=== PATIENT | female | born 1955 | race Caucasian/White ===

== ENCOUNTER 2017-01-18 14:38 | Inpatient (IN) | payer MEDICARE, OTHER ==
[2017-01-18] MEDS ORDERED: Nitrostat 0.4 MG (ED) SL ONE ×2 (15:16→15:22)
[2017-01-18] MEDS ORDERED: BABY ASPIRIN 81 MG CHEW PO ONE (15:16)
[2017-01-18] MEDS ORDERED: Levofloxacin 500MG/100ML D5W 500 MG/100 ML BAG IV STA (15:18)
[2017-01-18] MEDS ORDERED: Zofran 4 MG/2 ML VIAL IV ONE (15:19)
[2017-01-18] MEDS ORDERED: PROVENTIL Solution 2.5 MG/0.5 ML IH ONE ×2 (15:20→15:23)
[2017-01-18] MEDS ORDERED: Levofloxacin 500MG/100ML D5W 500 MG/100 ML BAG IV ONE (15:23)
[2017-01-18] MEDS ORDERED: Sodium Chloride 3 ML UD NEBULES IH ONE (15:24)
[2017-01-18] MEDS ORDERED: SUBLIMAZE 100 MCG/2 ML IV ONE (15:24)
[2017-01-18] MEDS: Sodium Chloride 0.9% 1000 ML 1,000 ML IV SCH (15:27)
--- NOTE | 2017-01-18 15:27 | ERPHSYRPT ---
- History of Present Illness Time Seen by Provider: 01/18/17 15:07 Exam Limitations: clinical condition Patient Subjective Stated Complaint: increased coughing and chest pressure for two weeks. states chest is sore to touch and pain increases with cough. Triage Nursing Assessment: to room per w/c, skin w/d, color pale, resp slightly labored. uses home oxygen. hx copd. states chest heaviness for two weeks. increased cough with green phlegm. Physician History: PATIENT WITH A HISTORY OF COPD, COMPLAINS OF ANTERIOR SHARP PAINS IN CHEST FOR 2 WEEKS ASSOCIATED WITH DIFFICULTY BREATHING AND A PRODUCTIVE COUGH GREEN SPUTUM. DENIES ASSOCIATED FEVER OR CHILLS. Timing/Duration: week(s) Activities at Onset: none Quality: sharpness Location: substernal Chest Pain Radiation: no radiation Severity of Pain-Max: severe Severity of Pain-Current: severe Modifying Factors: Improves With: breathing, coughing, exertion, change in position Associated Symptoms: cough, hurts to breathe Prior Chest Pain/Cardiac Workup: no prior cardiac workup Nitro Today/Relief: 0.4 mg x 2, provided by ED Aspirin Treatment Today: no aspirin today (ALLERGY TO ASPIRIN) Allergies/Adverse Reactions: aspirin Allergy (Verified 01/18/17 15:00) Home Medications: Albuterol Sulfate [Ventolin Hfa] 18 gm IH Q4HPRN PRN 11/25/15 [History] Albuterol/Ipratropium 3ml Neb* [DUONEB 0.5-3 MG/3 ml Neb] 1 unit NEB Q6H 11/24 [History] Budesonide/Formoterol Fumarate [Symbicort 160-4.5 Mcg Inhaler] 10.2 gm IH BID [History] Oxycodone HCl/Acetaminophen [Percocet 7.5-325 mg Tablet] 1 ea PO Q8HPRN PRN [History] Alprazolam [Xanax ER 0.5MG] 0.5 mg PO BID 01/18/17 [History] Hx Tetanus, Diphtheria Vaccination/Date Given: No Hx Influenza Vaccination/Date Given: No Hx Pneumococcal Vaccination/Date Given: Yes - Review of Systems Constitutional: No Fever, No Chills Eyes: No Symptoms Ears, Nose, & Throat: No Symptoms Respiratory: Cough, Dyspnea Cardiac: Chest Pain, No Edema, No Syncope Abdominal/Gastrointestinal: No Symptoms, No Abdominal Pain, No Nausea, No Vomiting, No Diarrhea Genitourinary Symptoms: No Symptoms, No Dysuria Musculoskeletal: No Symptoms, No Back Pain, No Neck Pain Skin: No Symptoms, No Rash Neurological: No Symptoms, No Dizziness, No Focal Weakness, No Sensory Changes Psychological: No Symptoms Endocrine: No Symptoms All Other Systems: Reviewed and Negative - Past Medical History Pertinent Past Medical History: Yes Neurological History: Migraines ENT History: No Pertinent History Respiratory History: COPD Endocrine Medical History: No Pertinent History Musculoskeletal History: Degenerative Disk Disease, Osteoporosis, Other GI Medical History: No Pertinent History History: No Pertinent History Psycho-Social History: No Pertinent History Female Reproductive Disorders: No Pertinent History - Past Surgical History Past Surgical History: Yes Neuro Surgical History: No Pertinent History Cardiac: No Pertinent History Respiratory: No Pertinent History Gastrointestinal: Cholecystectomy Genitourinary: No Pertinent History Musculoskeletal: Orthopedic Surgery Female Surgical History: No Pertinent History Other Surgical History: KNEE SURG - Social History Smoking Status: Current every day smoker How long have you smoked: 48 Exposure to second hand smoke: Yes Drug Use: none Patient Lives Alone: No Significant Family History: heart disease, cancer - Nursing Vital Signs Nursing Vital Signs: Initial Vital Signs Temperature 97.3 F Temperature Source Oral Pulse Rate [] 86 Pulse Rate 96 Respiratory Rate 20 Blood Pressure [] 119/72 Pain Intensity 7 - Physical Exam General Appearance: moderate distress Eye Exam: PERRL/EOMI, eyes nml inspection Ears, Nose, Throat Exam: normal ENT inspection, moist mucous membranes Neck Exam: normal inspection, non-tender, supple, full range of motion Respiratory Exam: lungs clear, diminished breath sounds (POOR AIR EXCHANGE), No respiratory distress Cardiovascular Exam: regular rate/rhythm, normal heart sounds Gastrointestinal/Abdomen Exam: soft, normal bowel sounds, No tenderness, No mass Back Exam: normal inspection, No CVA tenderness, No vertebral tenderness Extremity Exam: normal inspection, normal range of motion Neurologic Exam: alert, oriented x 3, cooperative, normal mood/affect, sensation nml, No motor deficits Skin Exam: normal color, warm, dry SpO2: 98 Oxygen Delivery: Nasal Cannula - Course EKG Interpreted by Me: RATE, Sinus Rhythm, Other (INDETERMINATE AXIS) - Radiology Exams Chest X-ray Interpretation: Discussed w/ radiologist, Negative Ordered Tests: Active Orders 24 hr Category Date Time Status Up With Assistance ROUTINE Activity 01/18/17 17:46 Ordered Admission/Status Order ROUTINE Care 01/18/17 17:46 Ordered Supervisor Hanging And Trimming STAT Care 01/18/17 15:25 Active Code Status Order ROUTINE Care 01/18/17 17:46 Ordered IV Care Q6H Care 01/18/17 17:46 Ordered IV Insertion STAT Care 01/18/17 15:19 Active Oxygen-ED Only NASAL CANNULA 2 lpm Care 01/18/17 15:16 Active Saroj Diaz, Apply ROUTINE Care 01/18/17 17:46 Ordered Vital Signs Q4H Care 01/18/17 17:46 Ordered Weight,Daily 0600 Care 01/18/17 17:46 Ordered Regular Diet Diet 01/18/17 Breakfast Ordered CHEST 1 VIEW (PORTABLE) Stat Exams 01/18/17 15:17 Completed BLOOD CULTURE Stat Lab 01/18/17 15:30 Received CBC W DIFF Stat Lab 01/18/17 15:16 Completed CMP Stat Lab 01/18/17 15:16 Completed D-DIMER QUANTITATION Stat Lab 01/18/17 15:16 Completed MAGNESIUM Stat Lab 01/18/17 15:16 Completed TROPONIN Q3H Lab 01/18/17 15:30 Completed TROPONIN Q3H Lab 01/18/17 18:30 Ordered TROPONIN Q3H Lab 01/18/17 21:30 Ordered TROPONIN Q3H Lab 01/19/17 00:30 Ordered TROPONIN Q3H Lab 01/19/17 03:30 Ordered Oxygen NASAL CANNULA 2 lpm RT 01/18/17 17:46 Ordered Pulse Oximetry CONTINUOUS RT 01/18/17 17:48 Ordered Respiratory Nebulizer STAT RT 01/18/17 15:21 Completed Respiratory Nebulizer STAT RT 01/18/17 17:38 Active Transfer Order Routine Transfer 01/18/17 17:46 Ordered Medication Summary Generic Name Dose Route Start Last Admin Trade Name Freq PRN Reason Stop Dose Admin Albuterol/Ipratropium 3 ml 01/18/17 19:00 Duoneb 0.5-3 Mg/3 Ml Neb IH 02/17/17 18:59 Q4HRT MARIBELL Alprazolam 0.5 mg 01/18/17 22:00 Xanax 0.5 Mg PO 02/17/17 21:59 BID MARIBELL Sodium Chloride 1,000 mls @ 50 mls/hr 01/18/17 15:30 01/18/17 15:27 Sodium Chloride 0.9% 1000 Ml IV 02/17/17 15:29 100 mls/hr .Q20H MARIBELL Administration Levalbuterol HCl 1.25 mg 01/18/17 17:49 Xopenex 1.25 Mg/0.5 Ml Ud Nebule IH 02/17/17 17:48 Q2HPRN PRN DIFFICULTY BREATHING Methylprednisolone Sodium Succinate 80 mg 01/18/17 18:00 Solu-Medrol 125 Mg IV 02/17/17 17:59 Q6HT MARIBELL Oxycodone/Acetaminophen 1 tab 01/18/17 17:50 Percocet Tablet 5/325mg PO 01/23/17 17:49 Q4H PRN PRN PAIN Discontinued Medications Generic Name Dose Route Start Last Admin Trade Name Freq PRN Reason Stop Dose Admin Albuterol Sulfate 10 mg 01/18/17 15:20 01/18/17 15:30 Proventil Solution 2.5 Mg/0.5 Ml IH 01/18/17 15:21 10 mg STAT ONE Administration Albuterol Sulfate Confirm 01/18/17 15:23 Proventil Solution 2.5 Mg/0.5 Ml Administered 01/18/17 15:24 Dose 10 mg IH .STK-MED ONE Albuterol/Ipratropium 3 ml 01/18/17 17:38 01/18/17 17:43 Duoneb 0.5-3 Mg/3 Ml Neb IH 01/18/17 17:39 3 ml STAT ONE Administration Albuterol/Ipratropium Confirm 01/18/17 17:43 Duoneb 0.5-3 Mg/3 Ml Neb Administered 01/18/17 17:44 Dose 3 ml IH .STK-MED ONE Aspirin 324 mg 01/18/17 15:16 01/18/17 15:47 Baby Aspirin 81 Mg Chew PO 01/18/17 15:17 Not Given STAT ONE Fentanyl Citrate 50 mcg 01/18/17 15:24 01/18/17 15:41 Sublimaze 100 Mcg/2 Ml IV 01/18/17 15:25 50 mcg STAT ONE Administration Fentanyl Citrate Confirm 01/18/17 15:39 Sublimaze 100 Mcg/2 Ml Administered 01/18/17 15:40 Dose 100 mcg .ROUTE .STK-MED ONE Levofloxacin/Dextrose 500 mg in 100 mls @ 100 mls/hr 01/18/17 15:18 01/18/17 15:27 Levofloxacin 500mg/100ml D5w IV 01/18/17 16:17 100 mls/hr STAT STA Administration Levofloxacin/Dextrose Confirm 01/18/17 15:23 Levofloxacin 500mg/100ml D5w Administered 01/18/17 15:24 Dose 500 mg in 100 mls @ ud IV .STK-MED ONE Methylprednisolone Sodium Succinate 125 mg 01/18/17 17:38 Solu-Medrol 125 Mg IV 01/18/17 17:39 STAT ONE Nitroglycerin 0.4 mg 01/18/17 15:16 01/18/17 15:27 Nitrostat 0.4 Mg (Ed) SL 01/18/17 15:17 0.4 mg STAT ONE Administration Nitroglycerin Confirm 01/18/17 15:22 Nitrostat 0.4 Mg (Ed) Administered 01/18/17 15:23 Dose 0.4 mg SL .STK-MED ONE Nitroglycerin 1 gm 01/18/17 17:45 Nitro-Bid 2% Ud Packets TOP 01/18/17 17:46 STAT ONE Ondansetron HCl 4 mg 01/18/17 15:19 01/18/17 15:41 Zofran 4 Mg/2 Ml Vial IV 01/18/17 15:20 4 mg STAT ONE Administration Ondansetron HCl Confirm 01/18/17 15:38 Zofran 4 Mg/2 Ml Vial Administered 01/18/17 15:39 Dose 4 mg .ROUTE .STK-MED ONE Sodium Chloride Confirm 01/18/17 15:24 Sodium Chloride 3 Ml Ud Nebules Administered 01/18/17 15:25 Dose 9 ml IH .STK-MED ONE Lab/Rad Data: Laboratory Result Diagrams 01/18/17 15:16 01/18/17 15:16 Laboratory Results 01/18/17 01/18/17 01/18/17 Range/Units 15:30 15:16 15:16 WBC (4.0-10.5) K/mm3 RBC (4.1-5.4) M/mm3 Hgb (12.0-16.0) gm/dl Hct (35-47) % MCV (78-100) fl MCH (26-32) pg MCHC (32-36) g/dl RDW (11.5-14.0) % Plt Count (150-450) K/mm3 MPV (6-9.5) fl Gran % (36.0-66.0) % Lymphocytes % (24.0-44.0) % Monocytes % (0.0-12.0) % Eosinophils % (0.00-5.0) % Basophils % (0.0-0.4) % Basophils # (0-0.4) D-Dimer 240 (0-500) ng/mL Sodium 136 (136-145) mEq/L Potassium 3.6 (3.5-5.1) mEq/L Chloride 92 L (98-107) mEq/L Carbon Dioxide 40.8 H (21-32) mEq/L Anion Gap 7.1 (5-15) MEQ/L BUN 9 (9-20) mg/dL Creatinine 0.51 L (0.55-1.30) mg/dl Estimated GFR > 60 ML/MIN Glucose 112 H (70-110) MG/DL Calcium 9.5 (8.5-10.1) mg/dL Magnesium 1.9 (1.8-2.4) mg/dL Total Bilirubin 0.20 (0.2-1.0) mg/dL AST 21 (15-37) U/L ALT 19 (12-78) U/L Alkaline Phosphatase 44 L (46-116) U/L Troponin I < 0.017 (0.000-0.056) ng/ml Serum Total Protein 8.0 (6.4-8.2) gm/dL Albumin 4.2 (3.4-5.0) g/dL 01/18/17 Range/Units 15:16 WBC 4.9 (4.0-10.5) K/mm3 RBC 4.16 (4.1-5.4) M/mm3 Hgb 12.7 (12.0-16.0) gm/dl Hct 41.3 (35-47) % MCV 99.3 (78-100) fl MCH 30.5 (26-32) pg MCHC 30.8 L (32-36) g/dl RDW 12.2 (11.5-14.0) % Plt Count 185 (150-450) K/mm3 MPV 8.8 (6-9.5) fl Gran % 43.3 (36.0-66.0) % Lymphocytes % 47.4 H (24.0-44.0) % Monocytes % 6.4 (0.0-12.0) % Eosinophils % 2.7 (0.00-5.0) % Basophils % 0.2 (0.0-0.4) % Basophils # 0.01 (0-0.4) D-Dimer (0-500) ng/mL Sodium (136-145) mEq/L Potassium (3.5-5.1) mEq/L Chloride (98-107) mEq/L Carbon Dioxide (21-32) mEq/L Anion Gap (5-15) MEQ/L BUN (9-20) mg/dL Creatinine (0.55-1.30) mg/dl Estimated GFR ML/MIN Glucose (70-110) MG/DL Calcium (8.5-10.1) mg/dL Magnesium (1.8-2.4) mg/dL Total Bilirubin (0.2-1.0) mg/dL AST (15-37) U/L ALT (12-78) U/L Alkaline Phosphatase (46-116) U/L Troponin I (0.000-0.056) ng/ml Serum Total Protein (6.4-8.2) gm/dL Albumin (3.4-5.0) g/dL - Progress Progress Note: 01/18/17 17:40 PATIENT GIVEN A CONTINUOUS NEBULIZER ALBUTEROL 0.5% 10MG OVER 1 HOUR. IV NORMAL SALINE 100ML/HR, SOLUMEDROL 125MG IV, AND AFTER 2 SETS OF BLOOD CULTURES LEVAQUIN 500MG IVPB. 01/18/17 17:45 UNABLE TO GIVE ASPIRIN DUE TO ALLERGY, Blood Culture(s) Obtained: Yes Antibiotics given: Yes (LEVAQUIN 500MG IVPB) Discussed with : Faith (DISCUSSED WITH DR VELAZQUEZ AT 1725 FOR ADMISSION) - Departure Time of Disposition: 18:00 Departure Disposition: Observation Clinical Impression: ACUTE CHEST PAIN, EXACERBATION COPD Condition: Stable Critical Care Time: No Referrals: DOROTA BOOGIE [Primary Care Provider] -
[2017-01-18 15:38] LABS: BASOPHIL % 0.2 % (0.0-0.4); Eosinophil % 2.7 % (0.00-5.0); Granulocytes % 43.3 % (36.0-66.0); Lymphocytes % 47.4 % (24.0-44.0); Mean Cell Volume 99.3 fl (78-100); Mean Corpuscular Hemoglobin 30.5 pg (26-32); Mean Platelet Volume 8.8 fl (6-9.5); Monocytes % 6.4 % (0.0-12.0); Platelet Count 185 K/mm3 (150-450); Red Blood Count 4.16 M/mm3 (4.1-5.4); Red Cell Distribution Width 12.2 % (11.5-14.0); White Blood Count 4.9 K/mm3 (4.0-10.5)
[2017-01-18] MEDS ORDERED: Zofran 4 MG/2 ML VIAL ONE (15:38)
[2017-01-18] MEDS ORDERED: SUBLIMAZE 100 MCG/2 ML ONE (15:39)
[2017-01-18 15:45] LABS: ALBUMIN 4.2 g/dL (3.4-5.0); ALKALINE PHOSPHATASE 44 U/L (46-116); ANION GAP 7.1 MEQ/L (5-15); BLOOD UREA NITROGEN 9 mg/dL (9-20); CHLORIDE 92 mEq/L (98-107); Carbon Dioxide 40.8 mEq/L (21-32); Glucose 112 MG/DL (70-110); MAGNESIUM 1.9 mg/dL (1.8-2.4); Potassium 3.6 mEq/L (3.5-5.1); SGOT/AST 21 U/L (15-37); SGPT/ALT 19 U/L (12-78); SODIUM 136 mEq/L (136-145)
--- NOTE | 2017-01-18 15:46 | XRAY ---
Indication: Chest pain and dyspnea. Comparison: November 25, 2015. Portable chest remains hyperinflated and clear with stable blunting of the right costophrenic angle. Heart and mediastinal structures also stable and within normal limits. Bony thorax intact again with mild osteopenia, degenerative changes, and left humeral head enchondroma. Impression: Stable nonacute chest again with chronic features.
[2017-01-18] MEDS ORDERED: solu-MEDROL 125 MG IV ONE (17:38)
[2017-01-18] MEDS ORDERED: DUONEB 0.5-3 MG/3 ml Neb IH ONE ×2 (17:38→17:43)
[2017-01-18] MEDS ORDERED: NITRO-BID 2% UD PACKETS TOP ONE (17:45)
[2017-01-18] MEDS ORDERED: Xopenex 1.25 MG/0.5 ML UD NEBULE IH PRN (17:49)
[2017-01-18] MEDS: solu-MEDROL 125 MG IV SCH (18:46)
[2017-01-18] MEDS: DUONEB 0.5-3 MG/3 ml Neb IH SCH ×2 (19:22→23:20)
[2017-01-18] MEDS: xanAX 0.5 MG PO SCH (21:18)
[2017-01-18] MEDS: PERCOCET TABLET 5/325MG PO PRN (21:32)
[2017-01-19] MEDS: solu-MEDROL 125 MG IV SCH ×4 (00:10→17:09)
[2017-01-19] MEDS: DUONEB 0.5-3 MG/3 ml Neb IH SCH ×6 (02:42→22:50)
[2017-01-19] MEDS: PERCOCET TABLET 5/325MG PO PRN ×3 (04:15→16:30)
[2017-01-19] MEDS: Advair Hfa 230/21 Mcg COMMON CANISTER IH SCH ×2 (06:23→18:34)
[2017-01-19] MEDS: Sodium Chloride 0.9% 1000 ML 1,000 ML IV SCH (07:48)
--- NOTE | 2017-01-19 07:55 | HP ---
CHIEF COMPLAINT: Shortness of breath. HISTORY OF PRESENT ILLNESS: The patient is a 61 year-old white female with severe chronic obstructive pulmonary disease and hypoxia. She reports she is on 3.5 liters of oxygen routinely. She normally sees Dr. Pierre. She has had admissions in the past for similar problems. She has a history of smoking. She normally takes DuoNeb at home and Albuterol. She reports she has been getting sicker over the past couple of weeks but having problems with her insurance and just now got it straightened out. She reports she was able to get her medications when she suddenly felt more faint and more short of breath and presented to the emergency room with those complaints. PAST MEDICAL HISTORY: Otherwise significant for osteoporosis. PAST SURGICAL HISTORY: Bilateral inguinal hernia. She has also had gallbladder removed. HOME MEDICATIONS: Includes the aforementioned Albuterol, DuoNeb, Symbicort, Percocet, Alprazolam. ALLERGIES: ASPIRIN. PHYSICAL EXAMINATION: Revealed a thin, white female who appears older than her stated age. Her vital signs in the emergency room showed temperature 97.3F oral, pulse 86, respiratory rate 20, blood pressure 119/72. She is again on oxygen per nasal cannula. HEENT: Otherwise normocephalic, atraumatic. Pupils equal round reactive to light. Extraocular movements intact. Oropharynx is slightly dry. NECK: Supple without lymphadenopathy, thyromegaly or JVD. CHEST: Reveals poor air movement and is very tight with slight wheezes heard in the left upper chest. HEART: Regular rate and rhythm without murmurs, rubs or gallops. ABDOMEN: Soft, nontender, nondistended. No palpable masses. EXTREMITIES: Without cyanosis, clubbing or edema. NEUROLOGIC: The patient is alert and oriented x3. LAB DATA AND TESTS: Reveals troponin of less than 0.017. She had a lipid panel done which showed total cholesterol of 231, HDL 92, LDL 127. A second troponin less than 0.017. A third troponin less than 0.017. A fourth troponin less than 0.017. Hemoglobin 41.3, white blood cell count 4,900, PLT count 185,000. A fifth troponin less than 0.017. D-dimer normal at 240. Chest x-ray showing stable nonacute with chronic features. EKG showing normal sinus rhythm, somewhat tachycardic otherwise with low voltage but no acute changes. ASSESSMENT: A patient with acute exacerbation of chronic obstructive pulmonary disease. She has been admitted to the hospital on oxygen support as at home. She is receiving the DuoNeb and PRN Albuterol. She is receiving Solu-Medrol 80 every six hours and Levaquin. We will add Singulair and Claritin to her treatments and monitor her improvement and advise continuing her home medications.
[2017-01-19] MEDS: Singulair 10 MG PO SCH (09:19)
[2017-01-19] MEDS: ENOXAPARIN SODIUM SQ SCH (09:20)
[2017-01-19] MEDS: xanAX 0.5 MG PO SCH ×2 (09:20→22:15)
[2017-01-19] MEDS: CLARITIN 10 MG PO SCH (09:20)
[2017-01-19] MEDS ORDERED: CEPACOL SORE THROAT LOZENGE PO PRN (11:12)
[2017-01-19] MEDS: Levofloxacin 500MG/100ML D5W 500 MG/100 ML BAG IV SCH (14:22)
[2017-01-20] MEDS: solu-MEDROL 125 MG IV SCH ×5 (00:19→23:19)
[2017-01-20] MEDS: DUONEB 0.5-3 MG/3 ml Neb IH SCH ×6 (02:51→22:33)
[2017-01-20] MEDS: PERCOCET TABLET 5/325MG PO PRN ×3 (04:03→20:02)
[2017-01-20] MEDS: Sodium Chloride 0.9% 1000 ML 1,000 ML IV SCH (04:56)
[2017-01-20 06:09] LABS: Mean Corpuscular Hemoglobin 30.9 pg (26-32); Platelet Count 158 K/mm3 (150-450); Red Blood Count 3.17 M/mm3 (4.1-5.4); White Blood Count 6.8 K/mm3 (4.0-10.5)
[2017-01-20] MEDS: Advair Hfa 230/21 Mcg COMMON CANISTER IH SCH ×2 (06:44→18:51)
[2017-01-20 06:49] LABS: ALBUMIN 3.1 g/dL (3.4-5.0); ALKALINE PHOSPHATASE 29 U/L (46-116); ANION GAP 6.3 MEQ/L (5-15); BLOOD UREA NITROGEN 6 mg/dL (9-20); CHLORIDE 99 mEq/L (98-107); Glucose 124 MG/DL (70-110); Potassium 3.6 mEq/L (3.5-5.1); SGOT/AST 15 U/L (15-37); SGPT/ALT 17 U/L (12-78); SODIUM 140 mEq/L (136-145)
[2017-01-20] MEDS: Singulair 10 MG PO SCH (08:29)
[2017-01-20] MEDS: CLARITIN 10 MG PO SCH (08:30)
[2017-01-20] MEDS: ENOXAPARIN SODIUM SQ SCH (08:30)
[2017-01-20] MEDS: xanAX 0.5 MG PO SCH ×2 (08:30→21:12)
[2017-01-20] MEDS: Levofloxacin 500MG/100ML D5W 500 MG/100 ML BAG IV SCH (09:03)
--- NOTE | 2017-01-20 10:10 | PCM.NOTE ---
Date and Time: 01/20/17 1009 Subjective Assessment: patient notes slight improvement, still has significant cough and shortness of breath. feels fatigued with minimal exertion Objective Exam General Appearance: no apparent distress Respiratory Exam: diminished breath sounds, prolonged expirations, wheezing Cardiovascular Exam: regular rate/rhythm, normal heart sounds Gastrointestinal/Abdomen Exam: soft, No tenderness, No mass Extremity Exam: normal inspection, normal range of motion OBJECTIVE DATA Vital Signs: Vital Signs - 24 hr Temp Pulse Resp BP Pulse Ox 01/20/17 08:00 98.7 F 101 H 20 121/70 94 L 01/20/17 06:00 101 H 18 94 L 01/20/17 04:00 98.6 F 96 H 21 120/58 95 01/20/17 02:51 96 H 21 95 01/19/17 23:52 98.3 F 102 H 20 105/59 97 01/19/17 22:50 97 H 18 96 01/19/17 20:40 95 01/19/17 19:44 98.5 F 100 H 21 111/57 95 01/19/17 18:00 100 H 21 95 01/19/17 16:00 98.2 F 105 H 19 86/54 97 01/19/17 14:00 101 H 18 95 01/19/17 11:45 97.8 F 104 H 18 114/59 94 L Oxygen-Last 24 hours O2 Percentage 3 Liters = 32% O2 Percentage 4 Liters = 36% O2 Percentage 4 Liters = 36% O2 Percentage 4 Liters = 36% O2 Percentage 4 Liters = 36% O2 Percentage 4 Liters = 36% Pain Assessment - Last Documented Pain Intensity 5 Pain Scale Used 0-10 Pain Scale Intake and Output: Intake & Output 01/17/17 01/18/17 01/19/17 01/20/17 11:59 11:59 11:59 11:59 Intake Total 1710 1099 Output Total 800 4500 Balance 915 -1751 Weight 53.433 kg Lab Results: Lab Results-Last 24 Hours 01/20/17 01/20/17 Range/Units 05:22 05:22 WBC 6.8 (4.0-10.5) K/mm3 RBC 3.17 L (4.1-5.4) M/mm3 Hgb 9.8 L (12.0-16.0) gm/dl Hct 31.7 L (35-47) % MCV 100.0 (78-100) fl MCH 30.9 (26-32) pg MCHC 30.9 L (32-36) g/dl RDW 12.0 (11.5-14.0) % Plt Count 158 (150-450) K/mm3 MPV 9.0 (6-9.5) fl Sodium 140 (136-145) mEq/L Potassium 3.6 (3.5-5.1) mEq/L Chloride 99 (98-107) mEq/L Carbon Dioxide 38.0 H (21-32) mEq/L Anion Gap 6.3 (5-15) MEQ/L BUN 6 L (9-20) mg/dL Creatinine 0.48 L (0.55-1.30) mg/dl Estimated GFR > 60 ML/MIN Glucose 124 H (70-110) MG/DL Calcium 8.3 L (8.5-10.1) mg/dL Total Bilirubin 0.10 L (0.2-1.0) mg/dL AST 15 (15-37) U/L ALT 17 (12-78) U/L Alkaline Phosphatase 29 L (46-116) U/L Serum Total Protein 6.0 L (6.4-8.2) gm/dL Albumin 3.1 L (3.4-5.0) g/dL Assessment/Plan (1) COPD exacerbation Current Visit: No Status: Acute Assessment & Plan: continue IV solumedrol, nebs and levaquin. on lovenox for DVT prophylaxis Code(s): J44.1 - CHRONIC OBSTRUCTIVE PULMONARY DISEASE W (ACUTE) EXACERBATION (2) Chronic respiratory failure Current Visit: No Status: Chronic Code(s): J96.10 - CHRONIC RESPIRATORY FAILURE, UNSP W HYPOXIA OR HYPERCAPNIA
[2017-01-20 10:13] LABS: Total Cells Counted 100
[2017-01-20 10:14] LABS: Platelet Estimate NORMAL (NORMAL)
[2017-01-21] MEDS: DUONEB 0.5-3 MG/3 ml Neb IH SCH ×2 (03:05→06:54)
[2017-01-21] MEDS: PERCOCET TABLET 5/325MG PO PRN (03:54)
[2017-01-21] MEDS: Sodium Chloride 0.9% 1000 ML 1,000 ML IV SCH (03:58)
[2017-01-21] MEDS: solu-MEDROL 125 MG IV SCH (06:06)
[2017-01-21 06:44] LABS: Mean Cell Volume 100.6 fl (78-100); Mean Platelet Volume 8.9 fl (6-9.5); Platelet Count 174 K/mm3 (150-450); Red Blood Count 3.37 M/mm3 (4.1-5.4); Red Cell Distribution Width 12.5 % (11.5-14.0); White Blood Count 6.4 K/mm3 (4.0-10.5)
[2017-01-21] MEDS: Advair Hfa 230/21 Mcg COMMON CANISTER IH SCH (06:54)
[2017-01-21 07:00] LABS: Mean Corpuscular Hemoglobin 30.2 pg (26-32)
[2017-01-21 07:35] LABS: ALBUMIN 3.3 g/dL (3.4-5.0); ALKALINE PHOSPHATASE 28 U/L (46-116); BLOOD UREA NITROGEN 6 mg/dL (9-20); CHLORIDE 100 mEq/L (98-107); Carbon Dioxide 40.2 mEq/L (21-32); Glucose 106 MG/DL (70-110); Potassium 3.5 mEq/L (3.5-5.1); SGOT/AST 19 U/L (15-37); SGPT/ALT 24 U/L (12-78); SODIUM 143 mEq/L (136-145); Total Protein 6.1 gm/dL (6.4-8.2)
[2017-01-21 08:24] VITALS: BP 148/73; PULSE 103; O2SAT 99
--- NOTE | 2017-01-21 08:33 | PCM.DS ---
Discharge Summary Date of Admission: 01/19/17 07:36 Admitting Physician: JEANIE VELAZQUEZ Primary Care Provider: DOROTA BOOGIE Allergies Allergies aspirin Allergy (Verified 01/18/17 15:00) Hospital Summary - Hospital Course Hospital Course: patient was admitted with copd exacerbation, she is on oxygen chronically and has advanced copd. she is doing much better at this time, sats are maintained on home oxygen. - Vitals & Intake/Output Vital Signs: Vital Signs Temperature 98.1 F 01/21/17 08:00 Pulse Rate 103 H 01/21/17 08:00 Respiratory Rate 18 01/21/17 08:00 Blood Pressure 148/73 01/21/17 08:00 O2 Sat by Pulse Oximetry 99 01/21/17 08:00 Oxygen-Last Documented O2 Percentage 4 Liters = 36% Intake & Output: Intake & Output 01/18/17 01/19/17 01/20/17 01/21/17 11:59 11:59 11:59 11:59 Intake Total 480 2749 3362 Output Total 4500 1300 Balance 480 -1751 2062 - Lab Result Diagrams: 01/21/17 06:00 01/21/17 06:00 Lab Results-Last 24 Hrs: Lab Results-Last 24 Hours 01/20/17 01/21/17 01/21/17 Range/Units 05:22 06:00 06:00 WBC 6.8 6.4 (4.0-10.5) K/mm3 RBC 3.17 L 3.37 L (4.1-5.4) M/mm3 Hgb 9.8 L 10.2 L (12.0-16.0) gm/dl Hct 31.7 L 33.9 L (35-47) % MCV 100.0 100.6 H (78-100) fl MCH 30.9 30.2 (26-32) pg MCHC 30.9 L 30.1 L (32-36) g/dl RDW 12.0 12.5 (11.5-14.0) % Plt Count 158 174 (150-450) K/mm3 MPV 9.0 8.9 (6-9.5) fl Segmented Neutrophils 88 H (36.0-66.0) % Lymphocytes (Manual) 9 L (24-44) % Monocytes (Manual) 3 (0.0-12.0) % Differential Comment NORMAL Platelet Estimate NORMAL (NORMAL) Sodium 143 (136-145) mEq/L Potassium 3.5 (3.5-5.1) mEq/L Chloride 100 (98-107) mEq/L Carbon Dioxide 40.2 H (21-32) mEq/L Anion Gap 6.0 (5-15) MEQ/L BUN 6 L (9-20) mg/dL Creatinine 0.47 L (0.55-1.30) mg/dl Estimated GFR > 60 ML/MIN Glucose 106 (70-110) MG/DL Calcium 8.5 (8.5-10.1) mg/dL Total Bilirubin 0.10 L (0.2-1.0) mg/dL AST 19 (15-37) U/L ALT 24 (12-78) U/L Alkaline Phosphatase 28 L (46-116) U/L Serum Total Protein 6.1 L (6.4-8.2) gm/dL Albumin 3.3 L (3.4-5.0) g/dL - Procedures and Test Procedures and Tests throughout Hospitalization: Therapy Orders & Screens 01/21/17 06:26 Sputum Specimen Obtain .as ordered Comment: Diagnosis: ACUTE EXAC COPD, HYPOXIA Discharge Exam General Appearance: no apparent distress, alert Respiratory Exam: diminished breath sounds, prolonged expirations Cardiovascular Exam: regular rate/rhythm, normal heart sounds Gastrointestinal/Abdomen Exam: soft, No tenderness, No mass Extremity Exam: normal inspection, normal range of motion Final Diagnosis/Problem List - Final Discharge Diagnosis/Problem (1) COPD exacerbation Current Visit: No Status: Acute Assessment & Plan: doing much better at this time (2) Chronic respiratory failure Current Visit: No Status: Chronic - Discharge Disposition: Home, Self-Care Condition: Stable Prescriptions: New Levofloxacin [Levaquin] 500 mg PO DAILY #7 tablet Prednisolone [Prelone] 15 mg PO UD #50 ml Continue Budesonide/Formoterol Fumarate [Symbicort 160-4.5 Mcg Inhaler] 2 puff IH Q12H Albuterol 2.5 mg/3 ml Neb [Proventil 2.5 mg/3 ml Neb] 2.5 mg IH Q4H PRN PRN #30 neb PRN Reason: Shortness Of Breath/Wheezing Ipratropium [place] 0.5 mg [Atrovent 0.5MG NEBULE] 1 neb IH [id number] PRN PRN Reason: Shortness Of Breath/Wheezing Ipratropium/Albuterol Sulfate [Combivent Inhaler] 1 puff IH Q6HPRN PRN PRN Reason: Shortness Of Breath Changed Oxycodone HCl/Acetaminophen [Percocet 7.5-325 mg Tablet] 1 ea PO TID #6 tablet Alprazolam [Xanax ER 0.5MG] 0.5 mg PO BID #4 tablet Follow up with: DOROTA BOOGIE [Primary Care Provider] - Forms: Patient Portal Information
[2017-01-21] MEDS: CLARITIN 10 MG PO SCH (08:37)
[2017-01-21] MEDS: xanAX 0.5 MG PO SCH (08:38)
[2017-01-21] MEDS: Singulair 10 MG PO SCH (08:38)
[2017-01-21 08:56] LABS: BAND 3 % (0.0-2.0); Platelet Estimate NORMAL (NORMAL); Total Cells Counted 100
== END 2017-01-21 11:10 | disposition home or self-care (01) | DRG 191 ==
LOC: ED 14:38 → MED SURG 18:14 → OBSVTOIN 01-19 07:36
PROVIDERS: ADMIT Family Medicine; ATTEND Family Medicine
DX: J44.1 Chronic obstructive pulmonary disease with (acute) exacerbation (principal); J96.11 Chronic respiratory failure with hypoxia; Z99.81 Dependence on supplemental oxygen; M81.0 Age-related osteoporosis without current pathological fracture
CPT/HCPCS: 36000; 36415; 71010; 80053; 80061; 83721; 83735; 84484; 85025; 85379; 87040; 87070; 93041; 93268; 94640; 94760; 96360; 96361; 96365; 96374; 96375; 99285; G0378; J1650; J1956; J2405; J2930; J3010; A9270-GY

== ENCOUNTER 2018-09-29 17:51 | Inpatient (IN) | payer MEDICARE ==
[2018-09-29] MEDS ORDERED: Sodium Chloride 0.9% 1000 ML 1,000 ML IV SCH ×2 (18:00→19:35)
[2018-09-29] MEDS ORDERED: Sodium Chloride 0.9% 1000 ML 1,000 ML ONE (18:09)
--- NOTE | 2018-09-29 18:09 | ERPHSYRPT ---
- History of Present Illness Time Seen by Provider: 09/29/18 18:07 Historian: patient, EMS Exam Limitations: no limitations Patient Subjective Stated Complaint: chest pain since yesterday took nitro at midnite and at 5 am then called ambualnce now because its back again Triage Nursing Assessment: patient alert and orietnedx3, brought in by EMS, no edema noted, pusles equal bialteral radius, skin elastic and cool to touch, lung sounds clear diminished , bowel sounds present x4 Physician History: chest pain since yesterday took nitro at midnite and at 5 am then called ambualnce now because its back again, denies any shortness of breath. Timing/Duration: yesterday Quality: dullness Location: substernal Chest Pain Radiation: no radiation Severity of Pain-Max: mild Severity of Pain-Current: mild Aspirin Treatment Today: no aspirin today Allergies/Adverse Reactions: aspirin Allergy (Verified 01/18/17 15:00) Home Medications: Budesonide/Formoterol Fumarate [Symbicort 160-4.5 Mcg Inhaler] 2 puff IH Q12H [History] Ipratropium Porter 0.5 mg [Atrovent 0.5MG NEBULE] 1 neb IH [id number] PRN [History] Ipratropium/Albuterol Sulfate [Combivent Inhaler] 1 puff IH [id number] PRN 01/18/17 [History] Hx Tetanus, Diphtheria Vaccination/Date Given: Yes Hx Influenza Vaccination/Date Given: No Hx Pneumococcal Vaccination/Date Given: No Immunizations Up to Date: Yes - Review of Systems Constitutional: No Fever, No Chills Eyes: No Symptoms Ears, Nose, & Throat: No Symptoms Respiratory: No Cough, No Dyspnea Cardiac: No Chest Pain, No Edema, No Syncope Abdominal/Gastrointestinal: No Abdominal Pain, No Nausea, No Vomiting, No Diarrhea Genitourinary Symptoms: No Dysuria Musculoskeletal: No Back Pain, No Neck Pain Skin: No Rash Neurological: No Dizziness, No Focal Weakness, No Sensory Changes Psychological: No Symptoms Endocrine: No Symptoms All Other Systems: Reviewed and Negative - Past Medical History Pertinent Past Medical History: Yes Neurological History: Migraines ENT History: No Pertinent History Cardiac History: No Pertinent History Respiratory History: COPD Endocrine Medical History: No Pertinent History Musculoskeletal History: Degenerative Disk Disease, Osteoporosis, Other GI Medical History: No Pertinent History, Gallbladder Disease History: No Pertinent History Psycho-Social History: No Pertinent History Female Reproductive Disorders: No Pertinent History, Other - Past Surgical History Past Surgical History: Yes (G/B, B/L HERNIA REPAIR, b/l br) Neuro Surgical History: No Pertinent History Cardiac: No Pertinent History Respiratory: No Pertinent History Gastrointestinal: Cholecystectomy Genitourinary: No Pertinent History Musculoskeletal: Orthopedic Surgery Female Surgical History: No Pertinent History Other Surgical History: left KNEE SURG - Social History Smoking Status: Never smoker How long have you smoked: 40 Exposure to second hand smoke: Yes Drug Use: none Patient Lives Alone: No Significant Family History: heart disease, cancer - Nursing Vital Signs Nursing Vital Signs: Initial Vital Signs Temperature 96 F 09/29/18 17:51 Pulse Rate 100 H 09/29/18 17:51 Respiratory Rate 20 09/29/18 17:51 Blood Pressure 123/78 09/29/18 17:51 O2 Sat by Pulse Oximetry 100 09/29/18 17:51 Pain Scale Pain Intensity 0 - Physical Exam General Appearance: no apparent distress, alert Eye Exam: PERRL/EOMI, eyes nml inspection Ears, Nose, Throat Exam: normal ENT inspection, moist mucous membranes Neck Exam: normal inspection, non-tender, supple, full range of motion Respiratory Exam: normal breath sounds, lungs clear, No respiratory distress Cardiovascular Exam: regular rate/rhythm, normal heart sounds Gastrointestinal/Abdomen Exam: soft, No tenderness, No mass Back Exam: normal inspection, No CVA tenderness, No vertebral tenderness Extremity Exam: normal inspection, normal range of motion Neurologic Exam: alert, oriented x 3, cooperative, normal mood/affect, sensation nml, No motor deficits Skin Exam: normal color, warm, dry SpO2: 100 - Course Nursing assessment & vital signs reviewed: Yes Ordered Tests: Active Orders 24 hr Category Date Time Status 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 STAT Care 09/29/18 17:58 Active EKG-ER Only STAT Care 09/29/18 17:57 Active IV Insertion STAT Care 09/29/18 17:57 Active Oxygen-ED Only Venti-Mask 31% Care 09/29/18 17:57 Active CHEST 1 VIEW (PORTABLE) Stat Exams 09/29/18 18:14 Taken CBC W DIFF Stat Lab 09/29/18 18:16 Completed CMP Stat Lab 09/29/18 18:16 Completed NT PRO BNP Stat Lab 09/29/18 18:16 Completed TROPONIN Q3H Lab 09/29/18 18:16 Completed TROPONIN Q3H Lab 09/29/18 21:00 Ordered TROPONIN Q3H Lab 09/30/18 00:00 Ordered TROPONIN Q3H Lab 09/30/18 03:00 Ordered TROPONIN Q3H Lab 09/30/18 06:00 Ordered Transfer Order Routine Transfer 09/29/18 Ordered Medication Summary Generic Name Dose Route Start Last Admin Trade Name Kingsley PRN Reason Stop Dose Admin Sodium Chloride 1,000 mls @ 50 mls/hr 09/29/18 18:00 09/29/18 18:14 Sodium Chloride 0.9% 1000 Ml IV 10/29/18 17:59 50 mls/hr .Q20H MARIBELL Administration Lab/Rad Data: Laboratory Result Diagrams 09/29/18 18:16 09/29/18 18:16 Laboratory Results 09/29/18 09/29/18 09/29/18 Range/Units 18:16 18:16 18:16 WBC 5.1 (4.0-10.5) K/mm3 RBC 3.65 L (4.1-5.4) M/mm3 Hgb 10.9 L (12.0-16.0) gm/dl Hct 36.9 (35-47) % MCV 101.1 H (78-100) fl MCH 29.8 (26-32) pg MCHC 29.5 L (32-36) g/dl RDW 11.7 (11.5-14.0) % Plt Count 205 (150-450) K/mm3 MPV 8.5 (6-9.5) fl Gran % 61.2 (36.0-66.0) % Eos # (Auto) 0.05 (0-0.5) Absolute Lymphs (auto) 1.56 (1.0-4.6) Absolute Monos (auto) 0.35 (0.0-1.3) Lymphocytes % 30.7 (24.0-44.0) % Monocytes % 6.9 (0.0-12.0) % Eosinophils % 1.0 (0.00-5.0) % Basophils % 0.2 (0.0-0.4) % Absolute Granulocytes 3.11 (1.4-6.9) Basophils # 0.01 (0-0.4) Sodium 134 L (137-145) mmol/L Potassium 4.5 (3.5-5.1) mmol/L Chloride 80 L (98-107) mmol/L Carbon Dioxide 44 H (22-30) mmol/L Anion Gap 14.5 (5-15) MEQ/L BUN 7 (7-17) mg/dL Creatinine 0.36 L (0.52-1.04) mg/dL Estimated GFR > 60.0 ML/MIN Glucose 129 H (74-106) mg/dL Calcium 8.9 (8.4-10.2) mg/dL Total Bilirubin 0.50 (0.2-1.3) mg/dL AST 23 (14-36) U/L ALT 13 (0-35) U/L Alkaline Phosphatase 54 (38-126) U/L Troponin I < 0.012 (0.000-0.034) ng/mL NT-Pro-B Natriuret Pep 64.0 (0-900) pg/mL Serum Total Protein 7.2 (6.3-8.2) g/dL Albumin 4.1 (3.5-5.0) g/dL - Progress Progress: improved Air Movement: fair Blood Culture(s) Obtained: No Antibiotics given: Yes Discussed with : Faith Counseled pt/family regarding: lab results, diagnosis, need for follow-up, rad results - Departure Time of Disposition: 19:03 Departure Disposition: Observation Clinical Impression: Chest pain, rule out acute myocardial infarction Pneumonia Qualifiers: Pneumonia type: due to unspecified organism Laterality: right Lung location: lower lobe of lung Qualified Code(s): J18.1 - Lobar pneumonia, unspecified organism Condition: Fair Critical Care Time: Yes Critical Care Time(excluding separately billable procedures): 30-74 minutes Referrals: JOSTIN WAYNE [Primary Care Provider] -
[2018-09-29 18:19] LABS: BASOPHIL % 0.2 % (0.0-0.4); Basophil (Absolute #) 0.01 (0-0.4); Eosinophil (Absolute #) 0.05 (0-0.5); Granulocyte Absolute (ANC) 3.11 (1.4-6.9); Granulocytes % 61.2 % (36.0-66.0); Hematocrit 36.9 % (35-47); Hemoglobin 10.9 gm/dl (12.0-16.0); Lymphocyte (Absolute #) 1.56 (1.0-4.6); Lymphocytes % 30.7 % (24.0-44.0); Mean Cell Volume 101.1 fl (78-100); Mean Corpuscular Hgb Concent. 29.5 g/dl (32-36); Mean Platelet Volume 8.5 fl (6-9.5); Monocyte (Absolute #) 0.35 (0.0-1.3); Monocytes % 6.9 % (0.0-12.0); Platelet Count 205 K/mm3 (150-450); Red Blood Count 3.65 M/mm3 (4.1-5.4); Red Cell Distribution Width 11.7 % (11.5-14.0); White Blood Count 5.1 K/mm3 (4.0-10.5)
[2018-09-29 18:24] LABS: Mean Corpuscular Hemoglobin 29.8 pg (26-32)
[2018-09-29 18:40] LABS: ALBUMIN 4.1 g/dL (3.5-5.0); ALKALINE PHOSPHATASE 54 U/L (38-126); BLOOD UREA NITROGEN 7 mg/dL (7-17); CHLORIDE 80 mmol/L (98-107); Calcium 8.9 mg/dL (8.4-10.2); Creatinine 1 0.36 mg/dL (0.52-1.04); Glucose 129 mg/dL (74-106); Potassium 4.5 mmol/L (3.5-5.1); SGOT/AST 23 U/L (14-36); SGPT/ALT 13 U/L (0-35); SODIUM 134 mmol/L (137-145); Total Protein 7.2 g/dL (6.3-8.2)
[2018-09-29 18:41] LABS: Carbon Dioxide 44 mmol/L (22-30)
[2018-09-29 18:42] LABS: ANION GAP 14.5 MEQ/L (5-15)
[2018-09-29] MEDS ORDERED: PROVENTIL 2.5 MG/3 ML NEB IH SCH (19:35)
[2018-09-29] MEDS ORDERED: TYLENOL 325 MG PO PRN (19:35)
[2018-09-29] MEDS ORDERED: ROCEPHIN 1 Gm-D5w 50 ml Bag** 1 G/50 ML IVPB IV ONE (20:00)
[2018-09-29] MEDS ORDERED: Zithromax 500 MG/ 250 ML NaCl Premix 500 MG/250 ML IVPB IV ONE (20:00)
[2018-09-29] MEDS: Zithromax 500 MG/ 250 ML NaCl Premix 500 MG/250 ML IVPB IV SCH (20:02)
[2018-09-29] MEDS: ROCEPHIN 1 Gm-D5w 50 ml Bag** 1 G/50 ML IVPB IV SCH (20:03)
[2018-09-29] MEDS: Advair Hfa 230/21 Mcg COMMON CANISTER IH SCH (20:33)
[2018-09-29] MEDS: DUONEB 0.5-3 MG/3 ml Neb IH SCH (20:33)
[2018-09-29] MEDS ORDERED: DUONEB 0.5-3 MG/3 ml Neb IH PRN (21:37)
[2018-09-29] MEDS ORDERED: xanAX 0.5 MG PO SCH (22:00)
[2018-09-30] MEDS ORDERED: ENOXAPARIN SODIUM SQ SCH ×2 (01:05→11:30)
[2018-09-30 03:59] LABS: Basophil (Absolute #) 0 (0-0.4); Eosinophil % 0.5 % (0.00-5.0); Eosinophil (Absolute #) 0.02 (0-0.5); Granulocyte Absolute (ANC) 2.48 (1.4-6.9); Granulocytes % 61.7 % (36.0-66.0); Hematocrit 33.7 % (35-47); Hemoglobin 10.1 gm/dl (12.0-16.0); Lymphocyte (Absolute #) 1.22 (1.0-4.6); Lymphocytes % 30.3 % (24.0-44.0); Mean Cell Volume 101.8 fl (78-100); Mean Corpuscular Hemoglobin 30.5 pg (26-32); Mean Platelet Volume 8.7 fl (6-9.5); Monocytes % 7.5 % (0.0-12.0); Platelet Count 189 K/mm3 (150-450); Red Blood Count 3.31 M/mm3 (4.1-5.4); Red Cell Distribution Width 11.5 % (11.5-14.0)
[2018-09-30 04:00] LABS: BLOOD UREA NITROGEN 9 mg/dL (7-17); CHLORIDE 81 mmol/L (98-107); Calcium 8.3 mg/dL (8.4-10.2); Creatinine 1 0.38 mg/dL (0.52-1.04); Glucose 90 mg/dL (74-106); Potassium 4.4 mmol/L (3.5-5.1); SODIUM 134 mmol/L (137-145)
[2018-09-30 04:27] LABS: Carbon Dioxide 44 mmol/L (22-30)
[2018-09-30 04:28] LABS: ANION GAP 13.4 MEQ/L (5-15)
[2018-09-30] MEDS: Advair Hfa 230/21 Mcg COMMON CANISTER IH SCH (06:31)
[2018-09-30] MEDS: DUONEB 0.5-3 MG/3 ml Neb IH SCH ×4 (06:32→18:20)
[2018-09-30 07:00] LABS: A-aADO2 16; ABG HEMOGLOBIN 10.6; ABG POTASSIUM 4.8 (3.5-5.1); ARTERIAL BLD GAS O2 SATURATION 99.2 % (95-100); ARTERIAL BLOOD GAS BASE EXCESS 20.5 (-2.0-2.0); ARTERIAL BLOOD GAS FIO2 35 %; ARTERIAL BLOOD GAS PO2 117 mmHg (75-100); ARTERIAL BLOOD GAS VENT MODE BiPAP; ARTERIAL BLOOD GAS pH 7.34 (7.35-7.45); CARBOXYHEMOGLOBIN 1.8 % THgb (0.0-6.9); HCO3- 50.2 (22-28); HGB O2 SAT 96.2 g/dF (94-100); Methhemoglobin 1.1 % (1.4-1.5); paO2 pAO1 0.88
[2018-09-30 07:01] LABS: ABG SITE LEFT BRACHIAL; ARTERIAL BLOOD GAS PCO2 93 mmHg (35-45)
[2018-09-30 07:01] LABS: A-aADO2 -68; ABG HEMOGLOBIN 10.5; ABG POTASSIUM 4.3 (3.5-5.1); ARTERIAL BLD GAS O2 SATURATION 99.4 % (95-100); ARTERIAL BLOOD GAS BASE EXCESS 20.8 (-2.0-2.0); ARTERIAL BLOOD GAS FIO2 36 %; ARTERIAL BLOOD GAS PO2 175 mmHg (75-100); CARBOXYHEMOGLOBIN 2.8 % THgb (0.0-6.9); HCO3- 52.6 (22-28); HGB O2 SAT 95.3 g/dF (94-100); Methhemoglobin 1.2 % (1.4-1.5); paO2 pAO1 1.64
[2018-09-30 07:02] LABS: ABG SITE RIGHT BRACHIAL; ARTERIAL BLOOD GAS PCO2 120 mmHg (35-45); ARTERIAL BLOOD GAS pH 7.25 (7.35-7.45)
--- NOTE | 2018-09-30 08:36 | XRAY ---
Indication: Chest pain. Short of breath. Comparison: January 18, 2017. Portable chest demonstrates new right costophrenic angle pleural-parenchymal thickening/scarring. Remaining heart and lungs unremarkable. Bony thorax intact again with minimal degenerative changes and left humeral neck enchondroma.
[2018-09-30] MEDS: ROCEPHIN 1 Gm-D5w 50 ml Bag** 1 G/50 ML IVPB IV SCH (09:26)
[2018-09-30] MEDS ORDERED: NON-FORMULARY ITEM (Budesonide/Formoterol Fumarate [Symbicort 160-4.5 Mcg Inhaler] 2 PUFF) IH SCH (11:15)
[2018-09-30 11:17] LABS: A-aADO2 31; ABG HEMOGLOBIN 10.4; ABG POTASSIUM 4.1 (3.5-5.1); ABG SITE LEFT RADIAL; ARTERIAL BLD GAS O2 SATURATION 98.2 % (95-100); ARTERIAL BLD GAS TIDAL VOLUME 18 cc; ARTERIAL BLOOD GAS BASE EXCESS 20.6 (-2.0-2.0); ARTERIAL BLOOD GAS FIO2 35 %; ARTERIAL BLOOD GAS PCO2 107 mmHg (35-45); ARTERIAL BLOOD GAS PO2 85 mmHg (75-100); ARTERIAL BLOOD GAS VENT MODE BiPAP; ARTERIAL BLOOD GAS pH 7.29 (7.35-7.45); CARBOXYHEMOGLOBIN 1.8 % THgb (0.0-6.9); HCO3- 51.4 (22-28); HGB O2 SAT 95.3 g/dF (94-100); Methhemoglobin 1.3 % (1.4-1.5); paO2 pAO1 0.73
[2018-09-30] MEDS ORDERED: Toprol-Xl 25MG Tablets PO SCH (11:30)
[2018-09-30] MEDS ORDERED: hydroDIURIL 25 MG PO SCH (11:30)
--- NOTE | 2018-09-30 11:44 | HP ---
CHIEF COMPLAINT: Chest pain. HISTORY OF PRESENT ILLNESS: The patient is a 63 year-old white female who reports that she has just been deteriorating over the past couple of weeks feeling weaker but no specific symptoms. The patient is known to have chronic obstructive pulmonary disease and does have a foreign broadcast specialist that she has seen within the last month and felt like she was doing okay at the time. PAST MEDICAL/SURGICAL HISTORY: The patient otherwise has history of migraine headaches. She has had degenerative disc disease, osteoporosis. She had cholecystectomy performed, left knee surgery. SOCIAL HISTORY: She is a smoker. She is currently living with her . PHYSICAL EXAMINATION: The patient's vital signs on admission showed the temperature 96F, pulse 100, respiratory rate 20, blood pressure 122/78. HEENT: Normocephalic, atraumatic. She is currently wearing a CPAP mask. Oropharynx is pink and moist. NECK: Supple without lymphadenopathy, thyromegaly or JVD. CHEST: Clear to auscultation but diminished air movement. HEART: Regular rate and rhythm. ABDOMEN: Soft. No palpable masses. EXTREMITIES: Without cyanosis, clubbing or edema. NEUROLOGIC: The patient was initially alert. LAB DATA AND TESTS: We took the CPAP mask off to interview her for the history of present illness and it was obvious in the first few minutes that she was tracking better but after taking the mask off after about five minutes she began to become more confused. We did check a CO2 level which did not seem to be that much elevated with the tidal CO2 monitor. However, she was noted to have a very high CO2 level on her last blood gas before the CPAP was initiated. The patient's troponins had been less than 0.012. Her sugar was 129, BUN 7, creatinine 0.36. Electrolytes were fairly normal. Liver enzymes were normal. White blood cell count 5,100, hemoglobin 10.9, PLT count 205,000. There were 61.2% granulocytes. 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 Once they put the CPAP mask on her the pH padilla to 7.34 and pCO2 was at 93, pO2 117. ASSESSMENT: A patient with respiratory failure. She apparently got worse after a dose of Xanax although she reports she takes Xanax routinely twice a day, this is confirmed on her medical record otherwise. The patient has ruled out for myocardial infarction with serial troponins. We will attempt obtaining pulmonary consult for her. She has been placed on IV Rocephin and Zithromax for chest x-ray which was concerning for possible developing pneumonia. We will also check her D-dimer and CT scan to rule out pulmonary embolism protocol. She will be maintained on CPAP to keep her CO2 levels down to the normal range as much as possible through the day while pending the pulmonary consult.
[2018-09-30 11:52] LABS: INFLUENZA A NEGATIVE (NEGATIVE); INFLUENZA B NEGATIVE (NEGATIVE); RESPIRATORY SYNCTIAL VIRUS NEGATIVE (Negative)
[2018-09-30] MEDS: Zithromax 500 MG/ 250 ML NaCl Premix 500 MG/250 ML IVPB IV SCH (12:00)
[2018-09-30] MEDS ORDERED: solu-MEDROL 125 MG IV SCH (12:00)
[2018-09-30 12:49] LABS: A-aADO2 54; ABG POTASSIUM 4.2 (3.5-5.1); ARTERIAL BLD GAS O2 SATURATION 98.2 % (95-100); ARTERIAL BLOOD GAS BASE EXCESS 20.4 (-2.0-2.0); ARTERIAL BLOOD GAS FIO2 35 %; ARTERIAL BLOOD GAS PCO2 95 mmHg (35-45); ARTERIAL BLOOD GAS PO2 77 mmHg (75-100); ARTERIAL BLOOD GAS VENT MODE BiPAP; ARTERIAL BLOOD GAS pH 7.33 (7.35-7.45); CARBOXYHEMOGLOBIN 2.4 % THgb (0.0-6.9); HCO3- 50.1 (22-28); HGB O2 SAT 94.7 g/dF (94-100); Methhemoglobin 1.2 % (1.4-1.5); paO2 pAO1 0.59
[2018-09-30 12:50] LABS: ABG SITE RIGHT BRACHIAL
[2018-09-30] MEDS ORDERED: CALAN 80 MG PO SCH (14:00)
[2018-09-30] MEDS ORDERED: Ativan 2 MG/1 ML VIAL IV ONE (14:30)
[2018-09-30 16:10] LABS: A-aADO2 61; ABG HEMOGLOBIN 10.2; ABG POTASSIUM 3.9 (3.5-5.1); ABG SITE RIGHT RADIAL; ALLEN TEST OK? YES; ARTERIAL BLOOD GAS BASE EXCESS 19.9 (-2.0-2.0); ARTERIAL BLOOD GAS FIO2 35 %; ARTERIAL BLOOD GAS PCO2 94 mmHg (35-45); ARTERIAL BLOOD GAS PO2 71 mmHg (75-100); ARTERIAL BLOOD GAS VENT MODE BiPAP; ARTERIAL BLOOD GAS pH 7.33 (7.35-7.45); CARBOXYHEMOGLOBIN 1.8 % THgb (0.0-6.9); HCO3- 49.6 (22-28); HGB O2 SAT 93.2 g/dF (94-100); Methhemoglobin 2.2 % (1.4-1.5); paO2 pAO1 0.54
[2018-09-30 16:29] VITALS: BP 97/65
[2018-09-30] MEDS ORDERED: Versed 50 MG/ 10 Ml MDV*** 50 MG in Sodium Chloride 0.9% 250 ML 240 ML IV SCH (17:30)
--- NOTE | 2018-09-30 17:33 | PCM.DS ---
Discharge Summary Date of Admission: 09/30/18 05:53 Admitting Physician: JEANIE VELAZQUEZ Consults: Consults on Case 09/30/18 10:20 Consult Pulmonology ROUTINE Primary Care Provider: JEANIE VELAZQUEZ Allergies Allergies aspirin Allergy (Verified 01/18/17 15:00) Hospital Summary - Hospital Course Hospital Course: Pt is 63 yo female pt with no PCP who sees Dr. Gerber Johnson for COPD, who came in to ER yesterday c/o chest pain. ABG done in the morning hours showed PCO2 of 120, pH was 7.25. She was put on CPAP and when Dr. Velazquez spoke wiht her she became confused within 5 minutes of having the CPAP off. ABG was repeated and pH was 7.34 with PCO2 of 93. Throughout the day she's been on BIPAP and her CO2 stayed very stable, in the 90s. Apparently pt takes 0.25mg xanax during the day but it was thought this increased her confusion yesterday so it was held today; thens he was somewhat agitated, trying to remove the bipap so 1 dose of 0.5mg IV ativan was given. Dr. Roth, radiotelephone technical operator for Dr. Johnson, was contacted and he advised intubating the pt and transferring to [facility] under the hospitalist. Pt's family was contacted () and we let him know we will be intubating the pt and transferring to [facility]. I have spoken with Dr. Shipley, who will be accepting the pt in transfer. - Vitals & Intake/Output Vital Signs: Vital Signs Temperature 97.2 F 09/30/18 16:00 Pulse Rate 97 H 09/30/18 16:00 Respiratory Rate 20 09/30/18 16:00 Blood Pressure 97/65 09/30/18 16:00 O2 Sat by Pulse Oximetry 99 09/30/18 16:00 Oxygen-Last Documented O2 Percentage 100% Intake & Output: Intake & Output 09/28/18 09/29/18 09/30/18 10/01/18 11:59 11:59 11:59 11:59 Intake Total 1456 380 Output Total 650 900 Balance 806 -520 Weight 57.5 kg - Lab Result Diagrams: 09/30/18 03:21 09/30/18 03:21 Lab Results-Last 24 Hrs: Lab Results-Last 24 Hours 09/29/18 09/29/18 09/29/18 Range/Units 18:16 18:16 18:16 WBC 5.1 (4.0-10.5) K/mm3 RBC 3.65 L (4.1-5.4) M/mm3 Hgb 10.9 L (12.0-16.0) gm/dl Hct 36.9 (35-47) % MCV 101.1 H (78-100) fl MCH 29.8 (26-32) pg MCHC 29.5 L (32-36) g/dl RDW 11.7 (11.5-14.0) % Plt Count 205 (150-450) K/mm3 MPV 8.5 (6-9.5) fl Gran % 61.2 (36.0-66.0) % Eos # (Auto) 0.05 (0-0.5) Absolute Lymphs (auto) 1.56 (1.0-4.6) Absolute Monos (auto) 0.35 (0.0-1.3) Lymphocytes % 30.7 (24.0-44.0) % Monocytes % 6.9 (0.0-12.0) % Eosinophils % 1.0 (0.00-5.0) % Basophils % 0.2 (0.0-0.4) % Absolute Granulocytes 3.11 (1.4-6.9) Basophils # 0.01 (0-0.4) D-Dimer (215-500) ng/mL Puncture Site pCO2 (35-45) mmHg pO2 (75-100) mmHg Base Excess (-2.0-2.0) O2 Saturation (94-100) g/dF ABG pH (7.35-7.45) ABG HCO3 (22-28) ABG O2 Sat (Measured) (95-100) % Eric Test A-a Gradient a/A Ratio Hemoglobin Carboxyhemoglobin (0.0-6.9) % THgb Methemoglobin (1.4-1.5) % Temperature C POC O2 Flow Rate % Vent Mode Tidal Volume cc Inspiratory BiPAP Expiratory BiPAP Sodium 134 L (137-145) mmol/L Potassium 4.5 (3.5-5.1) mmol/L Chloride 80 L (98-107) mmol/L Carbon Dioxide 44 H (22-30) mmol/L Anion Gap 14.5 (5-15) MEQ/L BUN 7 (7-17) mg/dL Creatinine 0.36 L (0.52-1.04) mg/dL Estimated GFR > 60.0 ML/MIN Glucose 129 H (74-106) mg/dL Calcium 8.9 (8.4-10.2) mg/dL Total Bilirubin 0.50 (0.2-1.3) mg/dL AST 23 (14-36) U/L ALT 13 (0-35) U/L Alkaline Phosphatase 54 (38-126) U/L Troponin I < 0.012 (0.000-0.034) ng/mL NT-Pro-B Natriuret Pep 64.0 (0-900) pg/mL Serum Total Protein 7.2 (6.3-8.2) g/dL Albumin 4.1 (3.5-5.0) g/dL Influenza Type A Ag (NEGATIVE) Influenza Type B Ag (NEGATIVE) RSV (PCR) (Negative) 09/29/18 09/30/18 09/30/18 Range/Units 21:12 00:34 03:21 WBC (4.0-10.5) K/mm3 RBC (4.1-5.4) M/mm3 Hgb (12.0-16.0) gm/dl Hct (35-47) % MCV (78-100) fl MCH (26-32) pg MCHC (32-36) g/dl RDW (11.5-14.0) % Plt Count (150-450) K/mm3 MPV (6-9.5) fl Gran % (36.0-66.0) % Eos # (Auto) (0-0.5) Absolute Lymphs (auto) (1.0-4.6) Absolute Monos (auto) (0.0-1.3) Lymphocytes % (24.0-44.0) % Monocytes % (0.0-12.0) % Eosinophils % (0.00-5.0) % Basophils % (0.0-0.4) % Absolute Granulocytes (1.4-6.9) Basophils # (0-0.4) D-Dimer (215-500) ng/mL Puncture Site pCO2 (35-45) mmHg pO2 (75-100) mmHg Base Excess (-2.0-2.0) O2 Saturation (94-100) g/dF ABG pH (7.35-7.45) ABG HCO3 (22-28) ABG O2 Sat (Measured) (95-100) % Eric Test A-a Gradient a/A Ratio Hemoglobin Carboxyhemoglobin (0.0-6.9) % THgb Methemoglobin (1.4-1.5) % Temperature C POC O2 Flow Rate % Vent Mode Tidal Volume cc Inspiratory BiPAP Expiratory BiPAP Sodium (137-145) mmol/L Potassium (3.5-5.1) mmol/L Chloride (98-107) mmol/L Carbon Dioxide (22-30) mmol/L Anion Gap (5-15) MEQ/L BUN (7-17) mg/dL Creatinine (0.52-1.04) mg/dL Estimated GFR ML/MIN Glucose (74-106) mg/dL Calcium (8.4-10.2) mg/dL Total Bilirubin (0.2-1.3) mg/dL AST (14-36) U/L ALT (0-35) U/L Alkaline Phosphatase (38-126) U/L Troponin I < 0.012 < 0.012 < 0.012 (0.000-0.034) ng/mL NT-Pro-B Natriuret Pep (0-900) pg/mL Serum Total Protein (6.3-8.2) g/dL Albumin (3.5-5.0) g/dL Influenza Type A Ag (NEGATIVE) Influenza Type B Ag (NEGATIVE) RSV (PCR) (Negative) 09/30/18 09/30/18 09/30/18 Range/Units 03:21 03:21 05:53 WBC 4.0 (4.0-10.5) K/mm3 RBC 3.31 L (4.1-5.4) M/mm3 Hgb 10.1 L (12.0-16.0) gm/dl Hct 33.7 L (35-47) % MCV 101.8 H (78-100) fl MCH 30.5 (26-32) pg MCHC 30.0 L (32-36) g/dl RDW 11.5 (11.5-14.0) % Plt Count 189 (150-450) K/mm3 MPV 8.7 (6-9.5) fl Gran % 61.7 (36.0-66.0) % Eos # (Auto) 0.02 (0-0.5) Absolute Lymphs (auto) 1.22 (1.0-4.6) Absolute Monos (auto) 0.30 (0.0-1.3) Lymphocytes % 30.3 (24.0-44.0) % Monocytes % 7.5 (0.0-12.0) % Eosinophils % 0.5 (0.00-5.0) % Basophils % 0.0 (0.0-0.4) % Absolute Granulocytes 2.48 (1.4-6.9) Basophils # 0 (0-0.4) D-Dimer (215-500) ng/mL Puncture Site RIGHT BRACHIAL pCO2 120 H* (35-45) mmHg pO2 175 H* (75-100) mmHg Base Excess 20.8 H (-2.0-2.0) O2 Saturation 95.3 (94-100) g/dF ABG pH 7.25 L* (7.35-7.45) ABG HCO3 52.6 H* (22-28) ABG O2 Sat (Measured) 99.4 (95-100) % Eric Test NOT APPLICABLE A-a Gradient -68 a/A Ratio 1.64 Hemoglobin 10.5 Carboxyhemoglobin 2.8 (0.0-6.9) % THgb Methemoglobin 1.2 L (1.4-1.5) % Temperature 37.0 C POC O2 Flow Rate 36 % Vent Mode Tidal Volume cc Inspiratory BiPAP Expiratory BiPAP Sodium 134 L (137-145) mmol/L Potassium 4.4 4.3 (3.5-5.1) mmol/L Chloride 81 L (98-107) mmol/L Carbon Dioxide 44 H (22-30) mmol/L Anion Gap 13.4 (5-15) MEQ/L BUN 9 (7-17) mg/dL Creatinine 0.38 L (0.52-1.04) mg/dL Estimated GFR > 60.0 ML/MIN Glucose 90 (74-106) mg/dL Calcium 8.3 L (8.4-10.2) mg/dL Total Bilirubin (0.2-1.3) mg/dL AST (14-36) U/L ALT (0-35) U/L Alkaline Phosphatase (38-126) U/L Troponin I (0.000-0.034) ng/mL NT-Pro-B Natriuret Pep (0-900) pg/mL Serum Total Protein (6.3-8.2) g/dL Albumin (3.5-5.0) g/dL Influenza Type A Ag (NEGATIVE) Influenza Type B Ag (NEGATIVE) RSV (PCR) (Negative) 09/30/18 09/30/18 09/30/18 Range/Units 05:57 06:00 06:55 WBC (4.0-10.5) K/mm3 RBC (4.1-5.4) M/mm3 Hgb (12.0-16.0) gm/dl Hct (35-47) % MCV (78-100) fl MCH (26-32) pg MCHC (32-36) g/dl RDW (11.5-14.0) % Plt Count (150-450) K/mm3 MPV (6-9.5) fl Gran % (36.0-66.0) % Eos # (Auto) (0-0.5) Absolute Lymphs (auto) (1.0-4.6) Absolute Monos (auto) (0.0-1.3) Lymphocytes % (24.0-44.0) % Monocytes % (0.0-12.0) % Eosinophils % (0.00-5.0) % Basophils % (0.0-0.4) % Absolute Granulocytes (1.4-6.9) Basophils # (0-0.4) D-Dimer 291 (215-500) ng/mL Puncture Site LEFT BRACHIAL pCO2 93 H* (35-45) mmHg pO2 117 H (75-100) mmHg Base Excess 20.5 H (-2.0-2.0) O2 Saturation 96.2 (94-100) g/dF ABG pH 7.34 L (7.35-7.45) ABG HCO3 50.2 H* (22-28) ABG O2 Sat (Measured) 99.2 (95-100) % Eric Test NOT APPLICABLE A-a Gradient 16 a/A Ratio 0.88 Hemoglobin 10.6 Carboxyhemoglobin 1.8 (0.0-6.9) % THgb Methemoglobin 1.1 L (1.4-1.5) % Temperature 37.0 C POC O2 Flow Rate 35 % Vent Mode BiPAP Tidal Volume cc Inspiratory BiPAP 14 Expiratory BiPAP 6 Sodium (137-145) mmol/L Potassium 4.8 (3.5-5.1) mmol/L Chloride (98-107) mmol/L Carbon Dioxide (22-30) mmol/L Anion Gap (5-15) MEQ/L BUN (7-17) mg/dL Creatinine (0.52-1.04) mg/dL Estimated GFR ML/MIN Glucose (74-106) mg/dL Calcium (8.4-10.2) mg/dL Total Bilirubin (0.2-1.3) mg/dL AST (14-36) U/L ALT (0-35) U/L Alkaline Phosphatase (38-126) U/L Troponin I < 0.012 (0.000-0.034) ng/mL NT-Pro-B Natriuret Pep (0-900) pg/mL Serum Total Protein (6.3-8.2) g/dL Albumin (3.5-5.0) g/dL Influenza Type A Ag (NEGATIVE) Influenza Type B Ag (NEGATIVE) RSV (PCR) (Negative) 09/30/18 09/30/18 09/30/18 Range/Units 10:42 11:03 12:45 WBC (4.0-10.5) K/mm3 RBC (4.1-5.4) M/mm3 Hgb (12.0-16.0) gm/dl Hct (35-47) % MCV (78-100) fl MCH (26-32) pg MCHC (32-36) g/dl RDW (11.5-14.0) % Plt Count (150-450) K/mm3 MPV (6-9.5) fl Gran % (36.0-66.0) % Eos # (Auto) (0-0.5) Absolute Lymphs (auto) (1.0-4.6) Absolute Monos (auto) (0.0-1.3) Lymphocytes % (24.0-44.0) % Monocytes % (0.0-12.0) % Eosinophils % (0.00-5.0) % Basophils % (0.0-0.4) % Absolute Granulocytes (1.4-6.9) Basophils # (0-0.4) D-Dimer (215-500) ng/mL Puncture Site LEFT RADIAL RIGHT BRACHIAL pCO2 107 H* 95 H* (35-45) mmHg pO2 85 77 (75-100) mmHg Base Excess 20.6 H 20.4 H (-2.0-2.0) O2 Saturation 95.3 94.7 (94-100) g/dF ABG pH 7.29 L 7.33 L (7.35-7.45) ABG HCO3 51.4 H* 50.1 H* (22-28) ABG O2 Sat (Measured) 98.2 98.2 (95-100) % Eric Test NOT APPLICABLE NOT APPLICABLE A-a Gradient 31 54 a/A Ratio 0.73 0.59 Hemoglobin 10.4 10.0 Carboxyhemoglobin 1.8 2.4 (0.0-6.9) % THgb Methemoglobin 1.3 L 1.2 L (1.4-1.5) % Temperature 37.0 37.0 C POC O2 Flow Rate 35 35 % Vent Mode BiPAP BiPAP Tidal Volume 18 cc Inspiratory BiPAP 14 18 Expiratory BiPAP 6 6 Sodium (137-145) mmol/L Potassium 4.1 4.2 (3.5-5.1) mmol/L Chloride (98-107) mmol/L Carbon Dioxide (22-30) mmol/L Anion Gap (5-15) MEQ/L BUN (7-17) mg/dL Creatinine (0.52-1.04) mg/dL Estimated GFR ML/MIN Glucose (74-106) mg/dL Calcium (8.4-10.2) mg/dL Total Bilirubin (0.2-1.3) mg/dL AST (14-36) U/L ALT (0-35) U/L Alkaline Phosphatase (38-126) U/L Troponin I (0.000-0.034) ng/mL NT-Pro-B Natriuret Pep (0-900) pg/mL Serum Total Protein (6.3-8.2) g/dL Albumin (3.5-5.0) g/dL Influenza Type A Ag NEGATIVE (NEGATIVE) Influenza Type B Ag NEGATIVE (NEGATIVE) RSV (PCR) NEGATIVE (Negative) 09/30/18 Range/Units 16:05 WBC (4.0-10.5) K/mm3 RBC (4.1-5.4) M/mm3 Hgb (12.0-16.0) gm/dl Hct (35-47) % MCV (78-100) fl MCH (26-32) pg MCHC (32-36) g/dl RDW (11.5-14.0) % Plt Count (150-450) K/mm3 MPV (6-9.5) fl Gran % (36.0-66.0) % Eos # (Auto) (0-0.5) Absolute Lymphs (auto) (1.0-4.6) Absolute Monos (auto) (0.0-1.3) Lymphocytes % (24.0-44.0) % Monocytes % (0.0-12.0) % Eosinophils % (0.00-5.0) % Basophils % (0.0-0.4) % Absolute Granulocytes (1.4-6.9) Basophils # (0-0.4) D-Dimer (215-500) ng/mL Puncture Site RIGHT RADIAL pCO2 94 H* (35-45) mmHg pO2 71 L (75-100) mmHg Base Excess 19.9 H (-2.0-2.0) O2 Saturation 93.2 L (94-100) g/dF ABG pH 7.33 L (7.35-7.45) ABG HCO3 49.6 H* (22-28) ABG O2 Sat (Measured) 97.0 (95-100) % Eric Test YES A-a Gradient 61 a/A Ratio 0.54 Hemoglobin 10.2 Carboxyhemoglobin 1.8 (0.0-6.9) % THgb Methemoglobin 2.2 H (1.4-1.5) % Temperature 37.0 C POC O2 Flow Rate 35 % Vent Mode BiPAP Tidal Volume cc Inspiratory BiPAP 18 Expiratory BiPAP 6 Sodium (137-145) mmol/L Potassium 3.9 (3.5-5.1) mmol/L Chloride (98-107) mmol/L Carbon Dioxide (22-30) mmol/L Anion Gap (5-15) MEQ/L BUN (7-17) mg/dL Creatinine (0.52-1.04) mg/dL Estimated GFR ML/MIN Glucose (74-106) mg/dL Calcium (8.4-10.2) mg/dL Total Bilirubin (0.2-1.3) mg/dL AST (14-36) U/L ALT (0-35) U/L Alkaline Phosphatase (38-126) U/L Troponin I (0.000-0.034) ng/mL NT-Pro-B Natriuret Pep (0-900) pg/mL Serum Total Protein (6.3-8.2) g/dL Albumin (3.5-5.0) g/dL Influenza Type A Ag (NEGATIVE) Influenza Type B Ag (NEGATIVE) RSV (PCR) (Negative) - Radiology Exams Ordered Rad Exams-Entire Visit: Radiology Procedures Category Date Time Status CHEST 1 VIEW (PORTABLE) Stat Exams 09/29/18 18:14 Completed - Procedures and Test Procedures and Tests throughout Hospitalization: Therapy Orders & Screens 09/29/18 19:35 Oxygen Venti-Mask 31% Comment: Respiratory Therapy Consult ROUTINE Comment: Reason For Exam: 09/29/18 20:35 Oxygen Nasal Cannula 4 lpm Comment: Peak Expiratory Flow Rate DAILY Comment: Reason For Exam: Respiratory Therapy Assessment DAILY Comment: 09/29/18 21:11 RT Screen per Nursing Assess ONCE Comment: Protocol Order Physician Instructions: Greater than 3 points order RT Admission Screen Reason For Exam: Triggered on Admission Diagnosis: PNE Diagnosis: PNE Pneumonia: Yes Home O2: Yes Asthma: No CHF: No Home CPAP/BIPAP: No Home Nebs/MDI: Yes Total Points: 13 09/30/18 06:00 BiPap/CPAP STAT Comment: Diagnosis: PNE 09/30/18 08:00 ST Screen per Nursing Assess once Comment: Protocol Order Physician Instructions: Greater than [address] Admission Screening Reason For Exam: Triggered on Admission Diagnosis: PNE CVA/Dyshpagia/Aphasia: Yes Cognitive Deficits: No Dehydration/Nutrition Deficit: No Reflux: No Oral-Motor Difficulties: No Pneumonia: Yes Prison Resident: No Total Points: 10 Discharge Exam General Appearance: no apparent distress, lethargy (opens eyes to touch. Does speak but difficult to understand with BIPAP.) Neurologic Exam: cooperative, disoriented Skin Exam: normal color, warm, dry, No rash Eye Exam: eyes nml inspection Ears, Nose, Throat Exam: dry mucous membranes Neck Exam: normal inspection Respiratory Exam: diminished breath sounds (poor air exchange), prolonged expirations, No crackles/rales, No rhonchi, No wheezing Cardiovascular Exam: regular rate/rhythm, normal heart sounds, No murmur Gastrointestinal/Abdomen Exam: soft, No distention Extremity Exam: normal inspection Back Exam: normal inspection, No rash Final Diagnosis/Problem List - Final Discharge Diagnosis/Problem (1) Respiratory failure Current Visit: Yes Status: Acute Assessment & Plan: Intubating now and transferring to [facility]. Code(s): J96.90 - RESPIRATORY FAILURE, UNSP, UNSP W HYPOXIA OR HYPERCAPNIA (2) COPD exacerbation Current Visit: No Status: Acute Assessment & Plan: on IV rocephin and zithromax Code(s): J44.1 - CHRONIC OBSTRUCTIVE PULMONARY DISEASE W (ACUTE) EXACERBATION (3) Chest pain, rule out acute myocardial infarction Current Visit: Yes Status: Resolved Code(s): R07.9 - CHEST PAIN, UNSPECIFIED (4) Chronic respiratory failure Current Visit: No Status: Chronic Code(s): J96.10 - CHRONIC RESPIRATORY FAILURE, UNSP W HYPOXIA OR HYPERCAPNIA - Discharge Disposition: DC TO [facility] [place] Condition: Fair Prescriptions: No Action Budesonide/Formoterol Fumarate [Symbicort 160-4.5 Mcg Inhaler] 2 puff IH Q12H Albuterol 2.5 mg/3 ml Neb [Proventil 2.5 mg/3 ml Neb] 2.5 mg IH Q4H PRN PRN #30 neb PRN Reason: Shortness Of Breath/Wheezing Ipratropium [place] 0.5 mg [Atrovent 0.5MG NEBULE] 1 neb IH [id number] PRN PRN Reason: Shortness Of Breath/Wheezing Ipratropium/Albuterol Sulfate [Combivent Inhaler] 1 puff IH Q6HPRN PRN PRN Reason: Shortness Of Breath Verapamil HCl 80 mg [Calan 80 mg] 80 mg PO Q8H Metoprolol Santoro/Hydrochlorothiaz [Metoprolol ER-Hctz 25-12.5 mg] 25 each PO BID ALPRAZolam [Xanax ER 0.5MG] 0.25 mg PO BID Follow up with: JEANIE VELAZQUEZ [Primary Care Provider] - 1 Week
[2018-09-30] MEDS ORDERED: Quelicin Fliptop 200 MG/10 ML IV ONE (17:45)
[2018-09-30] MEDS ORDERED: VERSED 5 MG/5 ML IV ONE ×2 (17:45→18:00)
[2018-09-30] MEDS ORDERED: Nimbex 20MG/10 Ml Vial (HIGH RISK MED) IV ONE ×3 (18:00→19:22)
[2018-09-30] MEDS ORDERED: SUBLIMAZE 100 MCG/2 ML IV ONE (18:15)
[2018-09-30] MEDS ORDERED: SUBLIMAZE 100 MCG/2 ML ONE (18:19)
[2018-09-30 18:28] LABS: A-aADO2 8; ABG POTASSIUM 3.6 (3.5-5.1); ARTERIAL BLD GAS O2 SATURATION 99.6 % (95-100); ARTERIAL BLD GAS TIDAL VOLUME 500 cc; ARTERIAL BLOOD GAS BASE EXCESS 15.3 (-2.0-2.0); ARTERIAL BLOOD GAS FIO2 50 %; ARTERIAL BLOOD GAS PEEP 8 cmH2O; ARTERIAL BLOOD GAS PO2 267 mmHg (75-100); ARTERIAL BLOOD GAS VENT MODE A/C; ARTERIAL BLOOD GAS pH 7.42 (7.35-7.45); CARBOXYHEMOGLOBIN 1.4 % THgb (0.0-6.9); HCO3- 42.2 (22-28); HGB O2 SAT 97.2 g/dF (94-100); Methhemoglobin 0.9 % (1.4-1.5); paO2 pAO1 0.97
[2018-09-30 18:29] LABS: ABG SITE LEFT BRACHIAL; ALLEN TEST OK? yes; ARTERIAL BLOOD GAS PCO2 65 mmHg (35-45)
[2018-09-30] MEDS ORDERED: LEVOPHED 4 MG/4 ML 4,000 MCG in Dextrose 5%/Water IV Soln. 500 ML 500 ML IV SCH (18:30)
[2018-09-30 18:53] VITALS: O2SAT 97
[2018-09-30 19:01] VITALS: PULSE 87
[2018-09-30] MEDS ORDERED: Dopamine 400 MG/D5W 250ML PREMIX 250 ML IV PRN (19:06)
[2018-09-30] MEDS ORDERED: Nimbex 200MG/20 Ml MDV (HIGH RISK MED)** 200 MG in Dextrose 5%/Water IV Soln. 250 ML 18... IV SCH (19:15)
[2018-09-30] MEDS ORDERED: METOPROLOL SU PO SCH (22:00)
[2018-09-30] MEDS ORDERED: HYDROCHLOROTHIAZ PO SCH (22:00)
[2018-09-30] MEDS ORDERED: [UNRECOGNIZED DRUG - OTHER] PO SCH (22:00)
--- NOTE | 2018-10-01 08:37 | XRAY ---
Indication: Status post intubation and NG tube placement. Comparison: One day earlier. Portable chest demonstrates new endotracheal tube tip 8 cm above the erik and new NG tube tip at the GE junction. Remaining chest unchanged.
--- NOTE | 2018-10-01 08:37 | XRAY ---
Indication: Endotracheal tube adjustment. Comparison: Taken earlier in the day. Portable chest demonstrates endotracheal tube tip now 5 cm above the erik with stable NG tube tip at the GE junction. Remaining chest unchanged.
[2018-10-01] MEDS ORDERED: FLUZONE QUAD (36mo-64yo) 2018-2019 SYRINGE IM ONE (10:00)
== END 2018-09-30 19:32 | disposition short-term general hospital (02) | DRG 189 ==
LOC: ED 17:51 → MED SURG 19:28 → OBSVTOIN 09-30 05:53 → ICU 09-30 17:25
PROVIDERS: ADMIT Family Medicine; ATTEND Family Medicine
DX: J96.21 Acute and chronic respiratory failure with hypoxia (principal); J44.1 Chronic obstructive pulmonary disease with (acute) exacerbation; J18.9 Pneumonia, unspecified organism; R07.9 Chest pain, unspecified; Z79.899 Other long term (current) drug therapy; R41.0 Disorientation, unspecified; F17.200 Nicotine dependence, unspecified, uncomplicated
CPT/HCPCS: 31500; 36415; 36600; 71045; 80048; 80053; 82375; 82803; 82947; 83605; 83880; 84484; 85025; 85379; 87086; 87631; 93005; 93041; 93268; 94002; 94150; 94640; 94762; 94770; 96360; 99285; G0378; J0330; J0456; J0696; J1265; J1650; J2060; J2250; J2930; J3010; A9270-GY